=== PATIENT | female | born 1960 | race Caucasian/White ===

== ENCOUNTER 2017-09-02 21:03 | Emergency (ER) | payer BC ==
[~2017-09-02] VITALS: Ht 157.5 cm; Wt 66.2 kg
[2017-09-02] MEDS ORDERED: IBUPROFEN 200200 M1 PO (21:10)
[2017-09-02] MEDS ORDERED: PAXIL10 MG PO (21:10)
[2017-09-02] MEDS ORDERED: PREDNISONE 10 M10 MG PO (21:10)
[2017-09-02] MEDS ORDERED: [UNRECOGNIZED DRUG - OTHER] PO (21:11)
[2017-09-03] MEDS ORDERED: HYDROCODONE-ACET5 ML PO (00:16)
[2017-09-03] MEDS ORDERED: HYDROCODONE-AP1 EAC6 PO (01:01)
== END 2017-09-03 01:00 | disposition home or self-care (01) ==
LOC: ER 21:03
DX: M25.531 Pain in right wrist (principal); M25.431 Effusion, right wrist; F17.210 Nicotine dependence, cigarettes, uncomplicated; F10.99 Alcohol use, unspecified with unspecified alcohol-induced disorder

== ENCOUNTER 2017-10-24 22:42 | Emergency (ER) | payer BC ==
[~2017-10-24] VITALS: Ht 157.5 cm; Wt 64.4 kg
[~2017-10-24 22:42] MED LIST: HYDROCODONE-ACET5 ML PO; HYDROCODONE-AP1 EAC6 PO; IBUPROFEN 200200 M1 PO; PAXIL10 MG PO; PREDNISONE 10 M10 MG PO; [UNRECOGNIZED DRUG - OTHER] PO
[2017-10-24] MEDS ORDERED: ZANTAC 150MG T150 MG PO (23:31)
[2017-10-24] MEDS ORDERED: PERCOCET PO (23:54)
[2017-10-24] MEDS ORDERED: NAPROSYN500 MG PO (23:54)
[2017-10-25 01:30] VITALS: BP 132/88
== END 2017-10-25 01:31 | disposition home or self-care (01) ==
LOC: ER 22:42
DX: G89.4 Chronic pain syndrome (principal); M25.531 Pain in right wrist; M25.532 Pain in left wrist; F17.210 Nicotine dependence, cigarettes, uncomplicated

== ENCOUNTER 2018-07-08 23:07 | Emergency (ER) | payer BC ==
[~2018-07-08] VITALS: Ht 157.5 cm; Wt 68.0 kg
[~2018-07-08 23:07] MED LIST changes: +NAPROSYN500 MG PO; +PERCOCET PO; +ZANTAC 150MG T150 MG PO
[2018-07-08] MEDS ORDERED: XELJANZ XR11 MG PO (23:40)
[2018-07-08] MEDS ORDERED: ASPIR 8181 MG PO (23:40)
[2018-07-08] MEDS ORDERED: FOLIC ACID1 MG PO (23:41)
[2018-07-09] MEDS ORDERED: NORCO 5-325 TA1 EACH PO (00:55)
[2018-07-09 02:22] VITALS: BP 165/107
== END 2018-07-09 02:23 | disposition home or self-care (01) ==
LOC: ER 23:07
DX: M06.811 Other specified rheumatoid arthritis, right shoulder (principal); F17.210 Nicotine dependence, cigarettes, uncomplicated

== ENCOUNTER 2019-02-22 03:46 | Emergency (ER) | payer BC ==
[~2019-02-22] VITALS: Ht 157.5 cm; Wt 69.4 kg
[~2019-02-22 03:46] MED LIST changes: +ASPIR 8181 MG PO; +FOLIC ACID1 MG PO; +NORCO 5-325 TA1 EACH PO; +XELJANZ XR11 MG PO
[2019-02-22] MEDS ORDERED: MEDROLDOSEPACK PO (04:07)
[2019-02-22 04:45] VITALS: BP 114/75
== END 2019-02-22 04:45 | disposition home or self-care (01) ==
LOC: ER 03:46
DX: M06.89 Other specified rheumatoid arthritis, multiple sites (principal); F17.210 Nicotine dependence, cigarettes, uncomplicated

== ENCOUNTER 2019-05-06 09:44 | Emergency (ER) | payer BC ==
[~2019-05-06] VITALS: Ht 157.5 cm; Wt 68.0 kg
[~2019-05-06 09:44] MED LIST changes: +MEDROLDOSEPACK PO
[2019-05-06 09:56] VITALS: BP 119/77
[2019-05-06] MEDS ORDERED: MEDROLDOSEPACK PO (10:15)
[2019-05-06] MEDS ORDERED: NAPROXEN250 MG PO (10:15)
== END 2019-05-06 10:37 | disposition home or self-care (01) ==
LOC: ER 09:44
DX: M06.811 Other specified rheumatoid arthritis, right shoulder (principal); F17.210 Nicotine dependence, cigarettes, uncomplicated

== ENCOUNTER 2019-06-27 22:41 | Emergency (ER) | payer BC ==
[~2019-06-27] VITALS: Ht 157.5 cm; Wt 70.3 kg
[~2019-06-27 22:41] MED LIST changes: +NAPROXEN250 MG PO
[2019-06-28] MEDS ORDERED: NORFLEX100 MG PO (00:09)
[2019-06-28] MEDS ORDERED: IBUPROFEN 600600 M1 PO (00:09)
[2019-06-28 00:35] VITALS: BP 134/80
== END 2019-06-28 00:38 | disposition home or self-care (01) ==
LOC: ER 22:41
DX: S16.1XXA Strain of muscle, fascia and tendon at neck level, initial encounter (principal); M06.9 Rheumatoid arthritis, unspecified; F17.210 Nicotine dependence, cigarettes, uncomplicated; X58.XXXA Exposure to other specified factors, initial encounter; Y92.89 Other specified places as the place of occurrence of the external cause; Y93.89 Activity, other specified; Y99.8 Other external cause status